=== PATIENT | male | born 1990 | race Caucasian/White ===

== ENCOUNTER 2020-09-04 05:59 | Emergency (ER) | payer MEDICAID, OTHER ==
[~2020-09-04] VITALS: Ht 170.2 cm; Wt 104.3 kg
--- NOTE | 2020-09-04 06:05 | NUR ---
Pt walked into ED from home c/o epigastric abdominal pain that started since midnight while he was at work. +N/V/D. Denies CP, SOB.
[2020-09-04 06:10] VITALS: BP_SYST 146
--- NOTE | 2020-09-04 06:10 | NUR ---
Placed in room 6 . Placed on patient monitor, blood pressure machine and pulse oximeter. To gown for exam. Side rails up. Report given to Charles MARSH.
--- NOTE | 2020-09-04 06:15 | NUR ---
Dr. Lizama at bedside for MSE.
[2020-09-04] MEDS ORDERED: KETOROLAC TROMETHAMINE 60 MG/2 ML VIAL IM ONE (06:30)
[2020-09-04] MEDS ORDERED: ONDANSETRON 4 MG ODT TAB PO ONE (06:30)
[2020-09-04 06:47] LABS: BASOPHILS # (AUTO) 0.1 K/uL (0.0-0.2); BASOPHILS % (AUTO) 0.5 % (0.0-2.0); EOSINOPHILS % (AUTO) 0.3 % (0.0-4.0); HEMATOCRIT 42.7 % (36-54); HEMOGLOBIN 14.8 g/dL (14.0-18.0); LYMPHOCYTES # (AUTO) 1.9 K/uL (1.0-5.5); LYMPHOCYTES % (AUTO) 13.6 % (20.5-51.5); MEAN CORPUSCULAR HEMOGLOBIN 30 pg (27-31); MEAN CORPUSCULAR HGB CONC 35 % (32-36); MEAN CORPUSCULAR VOLUME 87 fL (79.0-98.0); MONOCYTES # (AUTO) 0.8 K/uL (0.0-1.0); NEUTROPHILS # (AUTO) 10.9 K/uL (1.8-7.7); NEUTROPHILS % (AUTO) 79.6 % (40.0-70.0); PLATELET COUNT (AUTO) 254 K/uL (130-430); RED CELL DISTRIBUTION WIDTH 13.6 % (9.0-15.0); WHITE BLOOD COUNT (AUTO) 13.7 K/uL (4.8-10.8)
--- NOTE | 2020-09-04 06:56 | NUR ---
Pt [place] to CT with tech
[2020-09-04 07:01] LABS: CALCIUM 9.2 mg/dL (8.4-11.0); CREATININE 1.21 mg/dL (0.55-1.30); POTASSIUM 3.8 mmol/L (3.5-5.1)
--- NOTE | 2020-09-04 07:03 | NUR ---
Pt back from CT
[2020-09-04 07:14] LABS: TOTAL BILIRUBIN 0.3 mg/dL (0.0-1.0)
--- NOTE | 2020-09-04 07:14 | NUR ---
Report given to Aron MARSH.
--- NOTE | 2020-09-04 07:25 | NUR ---
RN HAS ASSESSED PT. OBTAINED UA. PT IS ALERT AND ORIENTED.
[2020-09-04 07:38] LABS: C-REACTIVE PROTEIN QUANT 0.2 mg/dL (0-0.5)
[2020-09-04 07:49] LABS: BILIRUBIN,URINE NEGATIVE (NEGATIVE); BLOOD, URINE NEGATIVE (NEGATIVE); CLARITY/URINE CLEAR (CLEAR); COLOR,URINE YELLOW (YELLOW); GLUCOSE,URINE NEGATIVE (NEGATIVE); KETONES,URINE NEGATIVE (NEGATIVE); LEUKOCYTE ESTERASE ,URINE NEGATIVE (NEGATIVE); NITRITE, URINE NEGATIVE (NEGATIVE); PROTEIN URINE NEGATIVE (NEGATIVE); UROBILINOGEN,URINE 0.2 (0.2-1.0)
[2020-09-04] MEDS ORDERED: HYDR-3917 PO (07:50)
[2020-09-04] MEDS ORDERED: ONDA-8 TL (07:50)
--- NOTE | 2020-09-04 07:53 | NUR ---
MD WESTBROOK HAS REVIEWED ALL SCANS AND LABS. NO ABNORMAL FINDING .PT IS BEING PREPARED FOR DC HOME. PT IS ASKED TO COME BACK SUNDAY AT 2PM TO SEE DR. WESTBROOK.
--- NOTE | 2020-09-04 07:54 | NUR ---
PT LEFT WITHOUT SIGNING. NO IV IN PLACE.
[2020-09-04 07:56] VITALS: BP_SYST 127
[2020-09-04 08:03] LABS: BARBITURATE, URINE NEGATIVE (NEG <=200); BENZODIAZEPINE, URINE NEGATIVE (NEG <=150); CANNABINOID, URINE POSITIVE (NEG <=50); COCAINE, URINE NEGATIVE (NEG <=150); METHAMPHETAMINES SCREEN,URINE NEGATIVE (NEG <=500); OPIATE, URINE POSITIVE (NEG <=100); PHENCYCLIDINE SCREEN,URINE NEGATIVE (NEG <=25); UR TRICYCLIC ANTIDEPRESSANTS NEGATIVE (NEG <=300); URINE AMPHETAMINE NEGATIVE (NEG <=500); URINE METHADONE NEGATIVE (NEG <=200); URINE OXYCODONE SCREEN NEGATIVE (NEG <=100); URINE PROPOXYPHENE SCREEN NEGATIVE (NEG <=300)
== END 2020-09-04 07:54 | disposition home or self-care (01) ==
LOC: SED 05:59
DX: R10.13 Epigastric pain (principal); R10.11 Right upper quadrant pain; R11.2 Nausea with vomiting, unspecified; Z88.1 Allergy status to other antibiotic agents; Z79.899 Other long term (current) drug therapy
CPT/HCPCS: 36415; 76376; 80307; 81003; 74176; 80053; 82150; 83605; 83615; 83690; 85025; 85610; 85730; 86140; 96372; 99284; J1885; Q0162

== ENCOUNTER 2020-11-24 20:30 | Emergency (ER) | payer MEDICAID ==
[~2020-11-24] VITALS: Ht 170.2 cm; Wt 113.4 kg
[~2020-11-24 20:30] MED LIST: HYDR-3917 PO; ONDA-8 TL
[2020-11-24 20:40] VITALS: BP_SYST 145
--- NOTE | 2020-11-24 20:47 | NUR ---
Patient to ER bed 6 to gown for evaluation. Side rails up. Report given to Unique MARSH.
[2020-11-24] MEDS ORDERED: NACL 0.9% 1,000 ML IV ONE (21:15)
[2020-11-24] MEDS ORDERED: PROCHLORPERAZINE EDISYLATE 10 MG/2 ML VIAL IVP ONE (21:15)
[2020-11-24] MEDS ORDERED: MORPHINE 4 MG INJ. 4 MG/ML VIAL IVP ONE (21:15)
--- NOTE | 2020-11-24 21:20 | NUR ---
PT KICKING ; SWEARING AT NURSES ; 2 RNS UNABLE TO START IV ON PT ;DIFFICULT IV STICK; DR WILKS AWARE
[2020-11-24 21:31] LABS: BASOPHILS # (AUTO) 0.1 K/uL (0.0-0.2); BASOPHILS % (AUTO) 0.6 % (0.0-2.0); EOSINOPHILS % (AUTO) 0.1 % (0.0-4.0); HEMATOCRIT 45.2 % (36-54); HEMOGLOBIN 15.8 g/dL (14.0-18.0); LYMPHOCYTES # (AUTO) 1.7 K/uL (1.0-5.5); LYMPHOCYTES % (AUTO) 8.4 % (20.5-51.5); MEAN CORPUSCULAR HEMOGLOBIN 30 pg (27-31); MEAN CORPUSCULAR HGB CONC 35 % (32-36); MEAN CORPUSCULAR VOLUME 86 fL (79.0-98.0); MONOCYTES # (AUTO) 0.8 K/uL (0.0-1.0); NEUTROPHILS % (AUTO) 86.9 % (40.0-70.0); PLATELET COUNT (AUTO) 391 K/uL (130-430); RED BLOOD CELL COUNT(AUTO) 5.26 MIL/uL (4.2-6.2); RED CELL DISTRIBUTION WIDTH 13.2 % (9.0-15.0); WHITE BLOOD COUNT (AUTO) 20.7 K/uL (4.8-10.8)
--- NOTE | 2020-11-24 21:45 | NUR ---
PT OBSERVED ON [place] IN PTS RM STICKING FINGERS DOWN THROAT TO MAKE HIMSELF VOMIT ; DR SALDANA
--- NOTE | 2020-11-24 21:50 | NUR ---
DR WILKS TO TALK WITH PT AND ORDERED US PN PT
[2020-11-24 22:06] LABS: CALCIUM 10.5 mg/dL (8.4-11.0); CREATININE 1.46 mg/dL (0.55-1.30); POTASSIUM 3.7 mmol/L (3.5-5.1)
[2020-11-24 22:12] LABS: TOTAL BILIRUBIN 0.5 mg/dL (0.0-1.0)
[2020-11-24] MEDS ORDERED: HALOPERIDOL LACTATE 5 MG/ML VIAL IM ONE (22:15)
--- NOTE | 2020-11-24 22:26 | NUR ---
HALDOL 2MG IM GIVEN TO PT; PT MAYO THOMAS
--- NOTE | 2020-11-24 22:33 | NUR ---
DR WILKS WITHPT TO TRY TO START IV
--- NOTE | 2020-11-24 22:50 | NUR ---
DR WILKS TO START IV LT AC 20G ; .9 NS 1000ML BOLUS MEDS MORPHINE AND COMPAZINE IVP GIVEN ORDERED NOW THAT PT HAS IV
--- NOTE | 2020-11-24 23:17 | NUR ---
PT TO US VIA [employer] EFFECTIVE
--- NOTE | 2020-11-25 01:00 | NUR ---
PT SLEEPING NO DISTRESS NOTED
[2020-11-25] MEDS ORDERED: DIPHENHYDRAMINE INJ 50 MG/ML VIAL IVP ONE (02:00)
[2020-11-25] MEDS ORDERED: MORPHINE 2 MG/ML INJ. SYRINGE IVP ONE (02:00)
[2020-11-25] MEDS ORDERED: PANTOPRAZOLE SODIUM 40 MG/VIAL (PROTONIX) IVP ONE (02:00)
[2020-11-25] MEDS ORDERED: NACL 0.9% 1,000 ML IV ONE (02:00)
[2020-11-25] MEDS ORDERED: ONDA-8 TL (03:47)
[2020-11-25] MEDS ORDERED: PRO40 PO (03:47)
[2020-11-25 04:11] VITALS: BP_SYST 138
--- NOTE | 2020-11-25 04:42 | NUR ---
[facility] CALLED ER AND GAVE REPORT ON PT; ADVISED PT PUTTING FINGERS DOWN THROAT TO PURPOSEFULLY VOMIT AND GAG PT STABLE TO RETURN TO [place] [facility] AT 0530 TRANSPORTATION ARRANGED
--- NOTE | 2020-11-25 05:35 | NUR ---
REMINDED PT [facility] TRANPORTATION ON ITS WAY FOR HIM TO TAKE HIM HOME
--- NOTE | 2020-11-25 05:54 | NUR ---
[facility] HERE TRANSPORTING PT BACK TO [facility] VIA [facility] REPORT GIVEN TO MEDIC PT STABLE
--- NOTE | 2020-11-25 06:23 | NUR ---
[facility] HERE FOR PT AND TO DRIVE TO HIS HOME [facility] APPROVED PPT STABLE
== END 2020-11-25 06:23 | disposition home or self-care (01) ==
LOC: SED 20:30
DX: R10.10 Upper abdominal pain, unspecified (principal); R11.2 Nausea with vomiting, unspecified; Z88.1 Allergy status to other antibiotic agents; Z79.899 Other long term (current) drug therapy
CPT/HCPCS: 36415; 74176; 80053; 83690; 85025; 96361 ×2; 96372; 96374; 96375 ×2; 96376; 99284; C9113; J0780; J1200; J1630; J2270 ×2; J7030 ×2

== ENCOUNTER 2021-02-24 14:41 | Emergency (ER) | payer MEDICAID, SELFPAY ==
[~2021-02-24] VITALS: Ht 170.2 cm; Wt 108.9 kg
[2021-02-24 14:41] VITALS: BP_SYST 146
[~2021-02-24 14:41] MED LIST changes: +PRO40 PO
--- NOTE | 2021-02-24 14:41 | NUR ---
BROUGHT BACK TO BED #6 AND TRIAGED. REPORT GIVEN TO ASHUTOSH
--- NOTE | 2021-02-24 14:58 | NUR ---
patient to ed at this time with c/o diffuse abdominal pain. patient states [facility] being worked up with labs and discharged with pancratitis diagnosis. patient very aggressive towards nursing staff. patient states he will stop being aggressive when he receives a dose of pain medication. patient is diphoretic and presents with hiccups. patient states his last meal was last night and he has c/o of nausea and vomiting. comfort and safety implemented and will be maintained. boardaries explained to patient regarding staff patient relationship. patient cursing and stating he is in pain.
--- NOTE | 2021-02-24 15:00 | NUR ---
MD at bedside to assess patient.
[2021-02-24] MEDS: ONDANSETRON 4 MG ODT TAB PO ONE (15:12)
--- NOTE | 2021-02-24 15:21 | NUR ---
patient administered zofran odt at this time for nausea and vomiting. patient actively vomiting brown moderate amount of emesis at this time.
[2021-02-24 15:27] LABS: BASOPHILS % (AUTO) 0.4 % (0.0-2.0); EOSINOPHILS % (AUTO) 0.1 % (0.0-4.0); HEMATOCRIT 47.6 % (36-54); HEMOGLOBIN 16.2 g/dL (14.0-18.0); LYMPHOCYTES # (AUTO) 1.3 K/uL (1.0-5.5); LYMPHOCYTES % (AUTO) 10.2 % (20.5-51.5); MEAN CORPUSCULAR HEMOGLOBIN 29 pg (27-31); MEAN CORPUSCULAR HGB CONC 34 % (32-36); MEAN CORPUSCULAR VOLUME 85 fL (79.0-98.0); MONOCYTES # (AUTO) 0.5 K/uL (0.0-1.0); MONOCYTES % (AUTO) 3.8 % (1.7-9.3); NEUTROPHILS # (AUTO) 10.7 K/uL (1.8-7.7); NEUTROPHILS % (AUTO) 85.5 % (40.0-70.0); PLATELET COUNT (AUTO) 366 K/uL (130-430); RED BLOOD CELL COUNT(AUTO) 5.63 MIL/uL (4.2-6.2); RED CELL DISTRIBUTION WIDTH 13.7 % (9.0-15.0); WHITE BLOOD COUNT (AUTO) 12.6 K/uL (4.8-10.8)
[2021-02-24 15:48] LABS: ALBUMIN 4.3 g/dL (3.4-4.8); CALCIUM 9.5 mg/dL (8.4-11.0); CREATININE 0.97 mg/dL (0.55-1.30); POTASSIUM 3.8 mmol/L (3.5-5.1); TOTAL BILIRUBIN 0.5 mg/dL (0.0-1.0)
--- NOTE | 2021-02-24 16:22 | NUR ---
patient received morphine 4mg ivp and zofran 4mg ivp with normal saline bolus up and infusing at this time. patient appears more relaxed. comfort and safety maintained.
[2021-02-24] MEDS: NACL 0.9% 1,000 ML IV ONE (17:12)
[2021-02-24] MEDS: MORPHINE 4 MG INJ. 4 MG/ML VIAL IVP ONE (17:13)
[2021-02-24] MEDS: ONDANSETRON HCL 4 MG/2 ML VIAL IVP ONE (17:13)
[2021-02-24] MEDS ORDERED: OMEP20TA20 PO (18:21)
--- NOTE | 2021-02-24 19:00 | NUR ---
patient resting comfortably, vss, no pain. patient waiting for disposition. remains nsr with pac's
[2021-02-24 19:33] VITALS: BP_SYST 117
--- NOTE | 2021-02-24 19:34 | NUR ---
Patient given written and verbal discharge instructions and verbalizes understanding. ER MD discussed with patient the results and treatment provided. Patient in stable condition. ID arm band removed. IV catheter removed intact and dressing applied, no active bleeding. Rx of PRILOSEC given. Patient educated on pain management and to follow up with PMD. Pain Scale 0. Opportunity for questions provided and answered. Medication side effect fact sheet provided.
== END 2021-02-24 19:34 | disposition home or self-care (01) ==
LOC: SED 14:41
DX: R10.13 Epigastric pain (principal); Z88.1 Allergy status to other antibiotic agents; Z79.899 Other long term (current) drug therapy; Z20.822 Contact with and (suspected) exposure to COVID-19
CPT/HCPCS: 36415; 80053; 83605; 83690; 85025; 87426; 96361; 96374; 96375; 96376; 99284; J2270; J2405; J7030; Q0162

== ENCOUNTER 2021-03-07 17:45 | Emergency (ER) | payer MEDICAID, SELFPAY ==
[~2021-03-07 17:45] MED LIST changes: +OMEP20TA20 PO
--- NOTE | 2021-03-07 19:07 | NUR ---
patient called for triage. patient called from tent and waiting room area.
--- NOTE | 2021-03-07 19:25 | NUR ---
CALLED FOR TRIAGE. NO ANSWER
--- NOTE | 2021-03-08 02:46 | NUR ---
patient not in waiting room. patient left without being seen
[2021-03-08] MEDS ORDERED: ONDA-8 TL (07:03)
== END 2021-03-08 02:46 | disposition left against medical advice (07) ==
LOC: SED 17:45
DX: R11.10 Vomiting, unspecified (principal); Z53.21 Procedure and treatment not carried out due to patient leaving prior to being seen by health care provider

== ENCOUNTER 2021-03-08 02:58 | Emergency (ER) | payer MEDICAID, SELFPAY ==
[2021-03-08 03:00] VITALS: BP_SYST 157
[2021-03-08] MEDS ORDERED: NACL 0.9% 1,000 ML IV ONE ×2 (03:45)
[2021-03-08] MEDS ORDERED: HALOPERIDOL LACTATE 5 MG/ML VIAL IVP ONE (03:45)
[2021-03-08] MEDS ORDERED: DIPHENHYDRAMINE INJ 50 MG/ML VIAL IVP ONE (03:45)
--- NOTE | 2021-03-08 04:00 | NUR ---
Patient to ER bed hw4 to gown for evaluation. Side rails up. Report given to self.
--- NOTE | 2021-03-08 04:30 | NUR ---
# 20 gauge angiocath placed to left forearm. Use of asceptic technique. Opsite placed over site. Blood return noted. Flushed with 10 cc of normal saline. No evidence of infiltration noted. Patient tolerated well.
--- NOTE | 2021-03-08 04:50 | NUR ---
Medicated benadryl 50mg ivp and haldol 5mg im to left deltoid per MD orders. IVF infusing with no s/s of infiltration at this time. Will cont to monitor and observe for any adverse reaction. bed to low position sr up. continue to monitor. bed to low position sr up, continue to monitor.
[2021-03-08 06:17] LABS: BASOPHILS # (AUTO) 0.1 K/uL (0.0-0.2); BASOPHILS % (AUTO) 0.6 % (0.0-2.0); EOSINOPHILS # (AUTO) 0.1 K/uL (0.0-0.4); EOSINOPHILS % (AUTO) 0.6 % (0.0-4.0); HEMATOCRIT 43.5 % (36-54); HEMOGLOBIN 15.1 g/dL (14.0-18.0); LYMPHOCYTES # (AUTO) 1.9 K/uL (1.0-5.5); LYMPHOCYTES % (AUTO) 11.4 % (20.5-51.5); MEAN CORPUSCULAR HEMOGLOBIN 30 pg (27-31); MEAN CORPUSCULAR HGB CONC 35 % (32-36); MEAN CORPUSCULAR VOLUME 86 fL (79.0-98.0); MONOCYTES # (AUTO) 0.9 K/uL (0.0-1.0); MONOCYTES % (AUTO) 5.7 % (1.7-9.3); NEUTROPHILS # (AUTO) 13.3 K/uL (1.8-7.7); NEUTROPHILS % (AUTO) 81.7 % (40.0-70.0); PLATELET COUNT (AUTO) 485 K/uL (130-430); RED BLOOD CELL COUNT(AUTO) 5.08 MIL/uL (4.2-6.2); RED CELL DISTRIBUTION WIDTH 13.9 % (9.0-15.0); WHITE BLOOD COUNT (AUTO) 16.3 K/uL (4.8-10.8)
[2021-03-08 06:23] LABS: CALCIUM 9.9 mg/dL (8.4-11.0); CREATININE 1.39 mg/dL (0.55-1.30); POTASSIUM 3.7 mmol/L (3.5-5.1)
[2021-03-08 06:29] LABS: ALBUMIN 4.6 g/dL (3.4-4.8); TOTAL BILIRUBIN 0.9 mg/dL (0.0-1.0)
[2021-03-08] MEDS ORDERED: ONDA-8 TL (07:03)
--- NOTE | 2021-03-08 08:29 | NUR ---
Patient given written and verbal discharge instructions and verbalizes understanding. ER MD discussed with patient the results and treatment provided. Patient in stable condition. ID arm band removed. IV catheter removed intact and dressing applied, no active bleeding. Rx of Zofran given. Patient educated on pain management and to follow up with PMD. Pain scale 0/10. Opportunity for questions provided and answered. Medication side effect fact sheet provided.
--- NOTE | 2021-03-08 08:34 | NUR ---
Patient alert and oriented x 3; able to talk without slurring. Patient also able to walk with a steady gait. Per Dr Molina, patient cleared to be discharged and drive himself. Patient was advised not to drive after being given medications earlier; however patient stated he has his own car here. Dr Salamanca aware. Patient walked out ambulatory.
[2021-03-08 08:41] VITALS: BP_SYST 137
== END 2021-03-08 08:41 | disposition home or self-care (01) ==
LOC: SED 02:58
DX: R10.84 Generalized abdominal pain (principal); R11.15 Cyclical vomiting syndrome unrelated to migraine; F12.90 Cannabis use, unspecified, uncomplicated; Z88.1 Allergy status to other antibiotic agents; Z79.899 Other long term (current) drug therapy
CPT/HCPCS: 36415; 80053; 83690; 85025; 96361; 96374; 96375; 99284; J1200; J1630; J7030

== ENCOUNTER 2022-08-20 22:30 | Inpatient (IN) | payer MEDICAID ==
[~2022-08-20] VITALS: Ht 170.2 cm; Wt 90.7 kg
[2022-08-20] MEDS ORDERED: LORazepam 2 MG/ML VIAL IVP ONE (23:00)
[2022-08-20] MEDS ORDERED: NACL 0.9% 1,000 ML IV ONE (23:00)
[2022-08-20 23:05] VITALS: BP_SYST 137; PULSE 131; RESP 44; TEMP 98.9; O2SAT 97
[2022-08-21] MEDS ORDERED: DIAZEPAM 5 MG TABLET (VALIUM) PO ONE (00:15)
[2022-08-21 00:25] LABS: BASOPHILS % (AUTO) 0.1 % (0.0-2.0); HEMATOCRIT 42.1 % (36-54); HEMOGLOBIN 14.3 g/dL (14.0-18.0); LYMPHOCYTES # (AUTO) 1.3 K/uL (1.0-5.5); LYMPHOCYTES % (AUTO) 6.5 % (20.5-51.5); MEAN CORPUSCULAR HEMOGLOBIN 29 pg (27-31); MEAN CORPUSCULAR HGB CONC 34 % (32-36); MEAN CORPUSCULAR VOLUME 86 fL (79.0-98.0); MONOCYTES # (AUTO) 1.1 K/uL (0.0-1.0); MONOCYTES % (AUTO) 5.9 % (1.7-9.3); NEUTROPHILS # (AUTO) 16.9 K/uL (1.8-7.7); NEUTROPHILS % (AUTO) 87.5 % (40.0-70.0); PLATELET COUNT (AUTO) 352 K/uL (130-430); RED BLOOD CELL COUNT(AUTO) 4.87 MIL/uL (4.2-6.2); RED CELL DISTRIBUTION WIDTH 12.9 % (9.0-15.0); WHITE BLOOD COUNT (AUTO) 19.3 K/uL (4.8-10.8)
[2022-08-21] MEDS ORDERED: NALOXONE HCL 2 MG/2 ML SYR ONE (00:31)
[2022-08-21] MEDS ORDERED: LORazepam 2 MG/ML VIAL IVP ONE (00:45)
[2022-08-21 01:02] LABS: ALANINE AMINOTRANSFERASE 29 U/L (12-78); ALBUMIN 4.3 g/dL (3.4-4.8); ANION GAP 20 (5-15); ASPARTATE AMINOTRANSFERASE 26 U/L (10-37); CREATININE 1.55 mg/dL (0.55-1.30); GFR AFRICAN AMERICAN 67 mL/min (>90); GLUCOSE 192 mg/dL (70-99); LIPASE 118 U/L (73-393); TOTAL BILIRUBIN 1.7 mg/dL (0.0-1.0); UREA NITROGEN, BLOOD 10 mg/dL (8-21)
[2022-08-21 01:18] LABS: ACETAMINOPHEN < 1 ug/mL (1-30); ALCOHOL, BLOOD < 3 mg/dL (<10); CHLORIDE 74 mmol/L (98-107)
[2022-08-21 01:30] LABS: BILIRUBIN,URINE NEGATIVE (NEGATIVE); CLARITY/URINE CLEAR (CLEAR); COLOR,URINE YELLOW (YELLOW); GLUCOSE,URINE NEGATIVE (NEGATIVE); KETONES,URINE 1+ (NEGATIVE); LEUKOCYTE ESTERASE ,URINE NEGATIVE (NEGATIVE); NITRITE, URINE NEGATIVE (NEGATIVE); PH,URINE 5.5 (5.0-8.0); PROTEIN URINE NEGATIVE (NEGATIVE); UROBILINOGEN,URINE 0.2 (0.2-1.0)
[2022-08-21 01:31] LABS: BLOOD, URINE TRACE (NEGATIVE)
[2022-08-21 01:41] LABS: WBC,URINE 0-3 /HPF (0-3)
[2022-08-21 01:42] LABS: BACTERIA,URINE RARE /HPF (None Seen)
[2022-08-21 03:13] LABS: BARBITURATE, URINE NEGATIVE (NEG <=200); BENZODIAZEPINE, URINE NEGATIVE (NEG <=150); CANNABINOID, URINE POSITIVE (NEG <=50); COCAINE, URINE NEGATIVE (NEG <=150); METHAMPHETAMINES SCREEN,URINE NEGATIVE (NEG <=500); OPIATE, URINE NEGATIVE (NEG <=100); PHENCYCLIDINE SCREEN,URINE NEGATIVE (NEG <=25); UR TRICYCLIC ANTIDEPRESSANTS NEGATIVE (NEG <=300); URINE AMPHETAMINE NEGATIVE (NEG <=500); URINE METHADONE NEGATIVE (NEG <=200); URINE OXYCODONE SCREEN NEGATIVE (NEG <=100); URINE PROPOXYPHENE SCREEN NEGATIVE (NEG <=300)
[2022-08-21] MEDS ORDERED: MORPHINE 4 MG INJ. 4 MG/ML VIAL IVP ONE (08:00)
[2022-08-21] MEDS: NACL 0.9% 1,000 ML IV SCH ×3 (09:45→18:49)
[2022-08-21] MEDS: METOCLOPRAMIDE HCL 10 MG/2 ML VIAL IVP PRN ×2 (10:04→20:33)
[2022-08-21 12:00] VITALS: BP_SYST 142; PULSE 96; RESP 18; TEMP 98.2; O2SAT 93
[2022-08-21] MEDS ORDERED: POTASSIUM CHLORIDE 20 MEQ TAB.PRT.SR PO ONE (13:00)
[2022-08-21] MEDS ORDERED: PANTOPRAZOLE SODIUM 40 MG/VIAL (PROTONIX) IVP ONE (13:00)
[2022-08-21] MEDS: traMADol HCL HCL 50 MG TABLET (ULTRAM) PO PRN ×2 (13:21→18:45)
[2022-08-21] MEDS ORDERED: NICOTINE 14 MG/24 HR PATCH.TD24 TD ONE (15:00)
[2022-08-21] MEDS ORDERED: POTASSIUM CHLORIDE 40 MEQ in NS 250 ML IV ONE (15:00)
[2022-08-21 16:00] VITALS: BP_SYST 122; PULSE 98; RESP 18; TEMP 97.2; O2SAT 99
[2022-08-21] MEDS ORDERED: OLANZapine 5 MG TABLET PO PRN (16:30)
[2022-08-21 19:51] LABS: CALCIUM 8.8 mg/dL (8.4-11.0); CREATININE 0.95 mg/dL (0.55-1.30)
[2022-08-21 20:55] VITALS: BP_SYST 100; PULSE 74; RESP 20; TEMP 97.4; O2SAT 95
[2022-08-22] VITALS (7 sets, daily range): BP systolic 122–155; PULSE 65–85; RESP 16–20; TEMP 96.8–98.2; O2SAT 96–99
[2022-08-22] MEDS: traMADol HCL HCL 50 MG TABLET (ULTRAM) PO PRN ×4 (02:16→20:37)
[2022-08-22 07:15] LABS: BASOPHILS % (AUTO) 0.3 % (0.0-2.0); EOSINOPHILS # (AUTO) 0.1 K/uL (0.0-0.4); HEMATOCRIT 42.4 % (36-54); HEMOGLOBIN 14.6 g/dL (14.0-18.0); LYMPHOCYTES # (AUTO) 2.3 K/uL (1.0-5.5); LYMPHOCYTES % (AUTO) 21.7 % (20.5-51.5); MEAN CORPUSCULAR HEMOGLOBIN 30 pg (27-31); MEAN CORPUSCULAR HGB CONC 34 % (32-36); MEAN CORPUSCULAR VOLUME 86 fL (79.0-98.0); MONOCYTES % (AUTO) 9.9 % (1.7-9.3); NEUTROPHILS # (AUTO) 7.1 K/uL (1.8-7.7); NEUTROPHILS % (AUTO) 67.1 % (40.0-70.0); PLATELET COUNT (AUTO) 323 K/uL (130-430); RED BLOOD CELL COUNT(AUTO) 4.91 MIL/uL (4.2-6.2); RED CELL DISTRIBUTION WIDTH 13.1 % (9.0-15.0); WHITE BLOOD COUNT (AUTO) 10.6 K/uL (4.8-10.8)
[2022-08-22] MEDS: NACL 0.9% 1,000 ML IV SCH ×2 (08:00→17:25)
[2022-08-22 08:44] LABS: ALBUMIN 3.9 g/dL (3.4-4.8); CALCIUM 8.8 mg/dL (8.4-11.0); CREATININE 1.01 mg/dL (0.55-1.30); PHOSPHORUS 2.7 mg/dL (2.7-4.5); THYROID STIMULATING HORMONE 1.72 uIu/mL (0.36-3.74); TOTAL BILIRUBIN 0.8 mg/dL (0.0-1.0)
[2022-08-22] MEDS ORDERED: PANTOPRAZOLE SODIUM 40 MG/VIAL (PROTONIX) IVP SCH (09:00)
[2022-08-22] MEDS ORDERED: NICOTINE 14 MG/24 HR PATCH.TD24 TD SCH (09:00)
[2022-08-22 13:02] LABS: URINE SODIUM, RANDOM 36 mmol/L (40-220)
[2022-08-23 13:07] LABS: MICROALBUMIN URINE RANDOM 11.8 ug/mL (Not Estab.)
== END 2022-08-22 21:25 | DRG 53 ==
LOC: SED 22:30 → STU 08-21 01:45
PROVIDERS: ADMIT Internal Medicine; ATTEND Internal Medicine
DX: R56.9 Unspecified convulsions (principal); N17.0 Acute kidney failure with tubular necrosis; R65.11 Systemic inflammatory response syndrome (SIRS) of non-infectious origin with acute organ dysfunction; E87.6 Hypokalemia; E87.1 Hypo-osmolality and hyponatremia; K85.90 Acute pancreatitis without necrosis or infection, unspecified; R45.851 Suicidal ideations; F20.0 Paranoid schizophrenia; E11.9 Type 2 diabetes mellitus without complications; F13.139 Sedative, hypnotic or anxiolytic abuse with withdrawal, unspecified; Z20.822 Contact with and (suspected) exposure to COVID-19; F41.9 Anxiety disorder, unspecified; K21.9 Gastro-esophageal reflux disease without esophagitis; F32.9 Major depressive disorder, single episode, unspecified; Z88.1 Allergy status to other antibiotic agents; Z88.8 Allergy status to other drugs, medicaments and biological substances; Z79.899 Other long term (current) drug therapy; Z81.8 Family history of other mental and behavioral disorders
CPT/HCPCS: 36415; 80048; 80053; 80307; 81000; 82043; 82533; 82570; 83605; 83690; 83735; 83930; 83935; 84100; 84132; 84302; 84443; 84484; 84550; 85025; 87040; 96361; 96374; 99291; C9113; G0378; G0480; G0481; G0482; J2060; J2270; J2310; J2765; J3480; J7030; J7050

== ENCOUNTER 2023-11-09 05:21 | Emergency (ER) | payer MEDICAID ==
[~2023-11-09] VITALS: Ht 170.2 cm; Wt 83.9 kg
[2023-11-09 05:25] VITALS: BP_SYST 112; PULSE 65; RESP 18; TEMP 97.2; O2SAT 97
[2023-11-09] MEDS: NACL 0.9% 1,000 ML IV ONE (06:38)
[2023-11-09] MEDS: ONDANSETRON HCL 4 MG/2 ML VIAL IVP ONE (06:39)
[2023-11-09] MEDS: MORPHINE 4 MG INJ. 4 MG/ML VIAL IVP ONE (06:43)
[2023-11-09 06:44] LABS: BASOPHILS # (AUTO) 0.1 K/uL (0.0-0.2); BASOPHILS % (AUTO) 0.7 % (0.0-2.0); EOSINOPHILS % (AUTO) 0.1 % (0.0-4.0); HEMATOCRIT 48.7 % (36-54); HEMOGLOBIN 16.4 g/dL (14.0-18.0); LYMPHOCYTES # (AUTO) 0.9 K/uL (1.0-5.5); LYMPHOCYTES % (AUTO) 7.4 % (20.5-51.5); MEAN CORPUSCULAR HEMOGLOBIN 29 pg (27-31); MEAN CORPUSCULAR HGB CONC 34 % (32-36); MEAN CORPUSCULAR VOLUME 87 fL (79.0-98.0); MONOCYTES # (AUTO) 0.2 K/uL (0.0-1.0); NEUTROPHILS # (AUTO) 11.2 K/uL (1.8-7.7); NEUTROPHILS % (AUTO) 89.8 % (40.0-70.0); PLATELET COUNT (AUTO) 435 K/uL (130-430); RED BLOOD CELL COUNT(AUTO) 5.61 MIL/uL (4.2-6.2); RED CELL DISTRIBUTION WIDTH 13.6 % (9.0-15.0); WHITE BLOOD COUNT (AUTO) 12.5 K/uL (4.8-10.8)
[2023-11-09 06:53] LABS: BILIRUBIN,URINE 2+ (NEGATIVE); BLOOD, URINE NEGATIVE (NEGATIVE); CLARITY/URINE CLEAR (CLEAR); COLOR,URINE YELLOW (YELLOW); GLUCOSE,URINE NEGATIVE (NEGATIVE); KETONES,URINE 3+ (NEGATIVE); LEUKOCYTE ESTERASE ,URINE NEGATIVE (NEGATIVE); NITRITE, URINE NEGATIVE (NEGATIVE); PROTEIN URINE 1+ (NEGATIVE)
[2023-11-09 06:58] LABS: ALANINE AMINOTRANSFERASE 45 U/L (12-78); ALBUMIN 4.5 g/dL (3.4-4.8); ANION GAP 14 (5-15); ASPARTATE AMINOTRANSFERASE 30 U/L (10-37); BILIRUBIN,DIRECT 0.1 mg/dL (0.0-0.3); CALCIUM 9.9 mg/dL (8.4-11.0); CARBON DIOXIDE 26 mmol/L (23-29); CHLORIDE 99 mmol/L (98-107); CREATININE 1.19 mg/dL (0.55-1.30); GFR AFRICAN AMERICAN 91 mL/min (>90); GLUCOSE 157 mg/dL (74-106); LIPASE 27 U/L (16-77); POTASSIUM 3.9 mmol/L (3.5-5.1); SODIUM SERUM 139 mmol/L (136-145); TOTAL BILIRUBIN 0.6 mg/dL (0.0-1.0); TOTAL PROTEIN, SERUM 8.7 g/dL (6.4-8.3); UREA NITROGEN, BLOOD 8 mg/dL (8-21)
[2023-11-09 06:59] LABS: ALCOHOL, BLOOD < 3 mg/dL (<10); GFR NON AFRICAN-AMERICAN 75 mL/min (>90)
[2023-11-09 07:12] LABS: BARBITURATE, URINE NEGATIVE (NEG <=200); BENZODIAZEPINE, URINE NEGATIVE (NEG <=150); CANNABINOID, URINE POSITIVE (NEG <=50); COCAINE, URINE POSITIVE (NEG <=150); METHAMPHETAMINES SCREEN,URINE NEGATIVE (NEG <=500); OPIATE, URINE NEGATIVE (NEG <=100); PHENCYCLIDINE SCREEN,URINE NEGATIVE (NEG <=25); URINE AMPHETAMINE NEGATIVE (NEG <=500); URINE METHADONE NEGATIVE (NEG <=200); URINE OXYCODONE SCREEN NEGATIVE (NEG <=100)
[2023-11-09 07:13] LABS: UR TRICYCLIC ANTIDEPRESSANTS NEGATIVE (NEG <=300)
[2023-11-09 07:44] LABS: BACTERIA,URINE RARE /HPF (None Seen); MUCUS,URINE 1+ /LPF (None Seen); RBC,URINE 0-3 /HPF (0-3); WBC,URINE 0-3 /HPF (0-3)
[2023-11-09 08:42] VITALS: BP_SYST 147; PULSE 70; RESP 18; TEMP 97.7; O2SAT 98
== END 2023-11-09 08:44 | disposition home or self-care (01) ==
LOC: SED 05:21
DX: R10.13 Epigastric pain (principal); R11.2 Nausea with vomiting, unspecified; F20.9 Schizophrenia, unspecified; Z88.1 Allergy status to other antibiotic agents; Z79.899 Other long term (current) drug therapy; Z79.2 Long term (current) use of antibiotics
CPT/HCPCS: 99284; 96374; 96361; 96375; 80307; 80076; 80048; 81001; 83690; 85025; 36415; G0482; J2405; J2270; J7030; 81000; 81015